=== PATIENT | male | born 1995 | race Caucasian/White ===

== ENCOUNTER 2025-09-30 20:32 | Emergency (ER) | payer SELFPAY ==
[~2025-09-30] VITALS: Ht 167.6 cm; Wt 75.0 kg
[2025-09-30 20:34] VITALS: O2SAT 98
[2025-09-30] MEDS ORDERED: LIDOCAINE 5% PATCH TOP SCH (21:00)
[2025-09-30] MEDS: ACETAMINOPHEN 500MG TABLET PO ONE (21:48)
[2025-09-30] MEDS: LIDOCAINE 5% PATCH TOP SCH (21:49)
[2025-09-30] MEDS ORDERED: NAPR-1176 MT (22:13)
[2025-09-30] MEDS ORDERED: LIDO-53 TP (22:13)
[2025-09-30] MEDS ORDERED: CYCL5TAB3 MT (22:13)
[2025-09-30] MEDS: LIDOCAINE HCL 1% 20ML VIAL INFIL ONE (23:40)
[2025-09-30] MEDS: TETANUS, DIPHTHERIA, PERTUSSIS VAC/PF 0.5ML (>10YR OLD) IM ONE (23:46)
[2025-09-30 23:48] VITALS: BP 127/76; PULSE 80; RESP 16; TEMP 36.9; O2SAT 100
== END 2025-09-30 23:52 | disposition home or self-care (01) ==
LOC: ER 20:32
DX: S01.122A Laceration with foreign body of left eyelid and periocular area, initial encounter (principal); M54.50 Low back pain, unspecified; Z79.1 Long term (current) use of non-steroidal anti-inflammatories (NSAID); W22.09XA Striking against other stationary object, initial encounter; Y93.89 Activity, other specified; Y92.89 Other specified places as the place of occurrence of the external cause; Y99.8 Other external cause status
CPT/HCPCS: 99285; 70450; 70486; 90715; 12011; 90471; J2003